=== PATIENT | male | born 1995 | race American Indian/Alaskan Native ===

== ENCOUNTER 2019-11-21 01:14 | Emergency (ER) | payer OTHER ==
[2019-11-21] MEDS ORDERED: Sodium Chloride 0.9% 1,000 ML IV ONE (01:27)
[2019-11-21] MEDS ORDERED: Clindamycin Phosphate 900 MG in Sodium Chloride 0.9% 100 ML IV ONE (01:27)
--- NOTE | 2019-11-21 01:32 | EDM.PDOC ---
ED HPI GENERAL MEDICAL PROBLEM - General Chief Complaint: Upper Extremity Injury/Pain Stated Complaint: ARM PAIN? Time Seen by Provider: 11/21/19 01:30 Source of Information: Reports: Patient History Limitations: Reports: No Limitations - History of Present Illness INITIAL COMMENTS - FREE TEXT/NARRATIVE: admits to injecting meth few days ago and left arm swollen and now worried. - Related Data Allergies Allergy/AdvReac Type Severity Reaction Status Date / Time sulfamethoxazole Allergy Cannot Verified 11/21/19 01:30 [From Bactrim] Remember trimethoprim [From Bactrim] Allergy Cannot Verified 11/21/19 01:30 Remember Home Meds: Home Meds . [No Known Home Meds] 12/25/13 [History] Past Medical History - Past Health History Medical/Surgical History: Denies Medical/Surgical History HEENT History: Reports: None Cardiovascular History: Reports: None Respiratory History: Reports: None Gastrointestinal History: Reports: None Genitourinary History: Reports: None Musculoskeletal History: Reports: None Neurological History: Reports: None Psychiatric History: Reports: None Endocrine/Metabolic History: Reports: None Hematologic History: Reports: None Immunologic History: Reports: None Oncologic (Cancer) History: Reports: None Dermatologic History: Reports: None - Infectious Disease History Infectious Disease History: Reports: Chicken Pox - Past Surgical History Head Surgeries/Procedures: Reports: None Review of Systems - Review of Systems Review Of Systems: Comprehensive ROS is negative, except as noted in HPI. ED EXAM, GENERAL - Physical Exam Exam: See Below Exam Limited By: No Limitations General Appearance: Alert, WD/WN, Anxious, Mild Distress Eye Exam: Bilateral Eye: PERRL (pupils ER @ 4mm) Ears: Hearing Grossly Normal Throat/Mouth: Normal Voice, No Airway Compromise Head: Atraumatic Neck: Non-Tender, Full Range of Motion Respiratory/Chest: No Respiratory Distress Cardiovascular: Regular Rate, Rhythm GI/Abdominal: Soft, Non-Tender Extremities: Other (left arm injection site swollen tneder R/P, NV wnl, erythema ) Neurological: Alert, Oriented, Normal Cognition, Normal Gait, No Motor/Sensory Deficits Psychiatric: Anxious, Tearful Skin Exam: Warm, Dry, Normal Color Lymphatic: No Adenopathy Course - Vital Signs Last Recorded V/S: Last Vital Signs Temp 36.3 C 11/21/19 01:23 Pulse 86 11/21/19 01:23 Resp 19 11/21/19 01:23 BP 125/80 11/21/19 01:23 Pulse Ox 100 11/21/19 01:23 - Orders/Labs/Meds Orders: Active Orders 24 hr Category Date Time Status CULTURE BLOOD [BC] Stat Lab 11/21/19 01:36 Received Labs: Laboratory Tests 11/21/19 11/21/19 11/21/19 Range/Units 01:36 01:36 01:36 WBC 8.0 (5.0-10.0) 10^3/uL RBC 4.29 L (4.6-6.2) 10^6/uL Hgb 13.6 L (14.0-18.0) g/dL Hct 38.1 L (40.0-54.0) % MCV 88.8 (80-100) fL MCH 31.7 (27.0-34.0) pg MCHC 35.7 H (33.0-35.0) g/dL Plt Count 319 (150-450) 10^3/uL Neut % (Auto) 71.2 (42.2-75.2) % Lymph % (Auto) 22.0 (20.5-50.1) % [place] % (Auto) 5.9 (2-8) % Eos % (Auto) 0.8 L (1.0-3.0) % Baso % (Auto) 0.1 (0.0-1.0) % Sodium 139 (136-145) mmol/L Potassium 3.5 (3.5-5.1) mmol/L Chloride 101 (98-107) mmol/L Carbon Dioxide 30 (21-32) mmol/L Anion Gap 11.5 (7-13) mEq/L BUN 7 (7-18) mg/dL Creatinine 0.97 (0.70-1.30) mg/dL Est Cr Clr Drug Dosing 110.73 mL/min Estimated GFR (MDRD) > 60 BUN/Creatinine Ratio 7.2 (No establ ref range) Glucose 103 H (74-99) mg/dL Lactic Acid 0.8 (0.4-2.0) mmol/L Calcium 8.8 (8.5-10.1) mg/dL Total Bilirubin 0.4 (0.2-1.0) mg/dL AST 15 (15-37) U/L ALT 22 (16-63) U/L Alkaline Phosphatase 80 (46-116) U/L Total Protein 7.4 (6.4-8.2) g/dL Albumin 4.0 (3.4-5.0) g/dL Globulin 3.4 Albumin/Globulin Ratio 1.2 Meds: Medications Discontinued Medications Generic Name Dose Route Start Last Admin Trade Name Lizzy PRN Reason Stop Dose Admin Clindamycin Phosphate 900 mg/ 106 mls @ 200 mls/hr 11/21/19 01:27 11/21/19 01 :45 Sodium Chloride IV 11/21/19 01:58 200 mls/hr ONETIME ONE Administration Sodium Chloride 1,000 mls @ 999 mls/hr 11/21/19 01:27 11/21/19 01:44 Normal Saline IV 11/21/19 02:27 999 mls/hr .BOLUS ONE Administration - Re-Assessments/Exams Free Text/Narrative Re-Assessment/Exam: 11/21/19 02:56 results discussed with pt Departure - Departure Time of Disposition: 02:56 Disposition: Home, Self-Care 01 Condition: Good Clinical Impression: Cellulitis Qualifiers: Site of cellulitis: extremity Site of cellulitis of extremity: upper extremity Laterality: left Qualified Code(s): L03.114 - Cellulitis of left upper limb - Discharge Information Forms: ED Department Discharge Additional Instructions: 1) don't inject anything into arm 2) follow up at clinic rx given; clindamycin 300mg qid x 40 Sepsis Event Note - Focused Exam Vital Signs: Vital Signs Temp Pulse Resp BP Pulse Ox 11/21/19 01:23 36.3 C 86 19 125/80 100 Date Exam was Performed: 11/21/19 Time Exam was Performed: 02:56 - My Orders Last 24 Hours: My Active Orders 11/21/19 01:36 CULTURE BLOOD [BC] Stat - Assessment/Plan Last 24 Hours: My Active Orders 11/21/19 01:36 CULTURE BLOOD [BC] Stat
[2019-11-21 02:10] LABS: ANION GAP 11.5 mEq/L (7-13); CHLORIDE,CL 101 mmol/L (98-107); SODIUM,NA 139 mmol/L (136-145)
[2019-11-21 03:03] VITALS: BP 125/76; PULSE 80
== END 2019-11-21 03:01 | disposition home or self-care (01) ==
LOC: DL.ED 01:14
DX: L03.114 Cellulitis of left upper limb (principal); Z88.2 Allergy status to sulfonamides
CPT/HCPCS: 36415; 80053; 83605; 85025; 87040; 96365; 99283; J3490; J7030; J7050

== ENCOUNTER 2021-03-19 02:14 | Emergency (ER) | payer OTHER ==
[2021-03-19] MEDS ORDERED: cefTRIAXone 1 GM Vial IM ONE (02:30)
[2021-03-19] MEDS ORDERED: Azithromycin 250 MG Tab PO ONE (02:30)
[2021-03-19 02:53] LABS: AMPHETAMINES,URINE POSITIVE (NEGATIVE); BARBITURATES,URINE NEGATIVE (NEGATIVE); BENZODIAZEPINE,URINE NEGATIVE (NEGATIVE); MDMA (ECSTASY), URINE POSITIVE (NEGATIVE); METHADONE,URINE NEGATIVE (NEGATIVE); METHAMPHETAMINES,URINE POSITIVE (NEGATIVE); OPIATES,URINE NEGATIVE (NEGATIVE); OXYCODONE,URINE POSITIVE (NEGATIVE); PHENCYCLIDINE,URINE NEGATIVE (NEGATIVE); TCA,URINE NEGATIVE (NEGATIVE)
[2021-03-19 03:04] LABS: ANION GAP 12.7 mEq/L (7-13); CHLORIDE,CL 97 mmol/L (98-107); SODIUM,NA 136 mmol/L (136-145)
[2021-03-19 03:49] VITALS: BP 111/74; PULSE 93
--- NOTE | 2021-03-19 03:51 | EDM.PDOC ---
ED HPI GENERAL MEDICAL PROBLEM - General Chief Complaint: Abdominal Pain Stated Complaint: PAIN IN LOWER RIGHT STOMACH Time Seen by Provider: 03/19/21 02:45 Source of Information: Reports: Patient, RN History Limitations: Reports: No Limitations - History of Present Illness INITIAL COMMENTS - FREE TEXT/NARRATIVE: ED with c/o pain lower abdomen some discharge at times from penis, pain right testicle x 2 days some burning with urination. Groin Pain Score (Numeric/FACES): 8 - Related Data Allergies Allergy/AdvReac Type Severity Reaction Status Date / Time sulfamethoxazole Allergy Cannot Verified 03/19/21 02:33 [From Bactrim] Remember trimethoprim [From Bactrim] Allergy Cannot Verified 03/19/21 02:33 Remember Home Meds: Home Meds Doxycycline [Vibra-Tabs] 100 mg PO Q12HR 7 Days #14 tab 02/08/21 [Rx] Past Medical History - Past Health History Medical/Surgical History: Denies Medical/Surgical History HEENT History: Reports: None Cardiovascular History: Reports: None Respiratory History: Reports: None Gastrointestinal History: Reports: None Genitourinary History: Reports: None Musculoskeletal History: Reports: None Neurological History: Reports: None Psychiatric History: Reports: None Endocrine/Metabolic History: Reports: None Hematologic History: Reports: None Immunologic History: Reports: None Oncologic (Cancer) History: Reports: None Dermatologic History: Reports: Other (See Below) Other Dermatologic History: 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 - Infectious Disease History Infectious Disease History: Reports: Chicken Pox, MRSA - Past Surgical History Head Surgeries/Procedures: Reports: None Social & Family History - Family History Family Medical History: No Pertinent Family History - Tobacco Use Tobacco Use Status *Q: Current Some Day Tobacco User Years of Tobacco use: 7 Packs/Tins Daily: 0.5 - Caffeine Use Caffeine Use: Reports: Coffee, Energy Drinks, Soda, Tea, Other - Recreational Drug Use Recreational Drug Use: Yes Recreational Drug Type: Reports: Marijuana/Hashish, Methamphetamine ED ROS GENERAL - Review of Systems Review Of Systems: See Below Constitutional: Reports: Chills, Weight Gain Respiratory: Reports: No Symptoms : Reports: Discharge, Dysuria Musculoskeletal: Reports: No Symptoms Skin: Reports: No Symptoms ED EXAM, RENAL/ - Physical Exam Exam: See Below Exam Limited By: No Limitations General Appearance: Alert, Mild Distress Eye Exam: Bilateral Eye: EOMI Ears: Hearing Grossly Normal Throat/Mouth: Normal Voice Head: Atraumatic, Normocephalic Neck: Normal Inspection Respiratory/Chest: No Respiratory Distress Cardiovascular: Regular Rate, Rhythm GI/Abdominal: Soft, Tender (supra pubic) (Male) Exam: Cremasteric Reflex, Inguinal Lymphadenopathy (right), Scrotal Swelling (right firm tender), Testicular Tenderness (R), Urethral Discharge. No: Penile Lesions Extremities: Normal Inspection Neurological: Alert, Oriented, Normal Cognition Psychiatric: Normal Affect Skin Exam: Warm, Dry, Intact, Normal Color, Tattoo(s) Course - Vital Signs Last Recorded V/S: Last Vital Signs Temp 98.9 F 03/19/21 02:32 Pulse 93 03/19/21 03:49 Resp 18 03/19/21 03:49 BP 111/74 03/19/21 03:49 Pulse Ox 99 03/19/21 03:49 - Orders/Labs/Meds Labs: Laboratory Tests 03/19/21 03/19/21 03/19/21 Range/Units 02:33 02:33 02:40 WBC 16.0 H (5.0-10.0) 10^3/uL RBC 4.63 (4.6-6.2) 10^6/uL Hgb 14.7 D (14.0-18.0) g/dL Hct 42.3 (40.0-54.0) % MCV 91.4 (80-100) fL MCH 31.7 (27.0-34.0) pg MCHC 34.8 (33.0-35.0) g/dL Plt Count 404 D (150-450) 10^3/uL Neut % (Auto) 86.0 H (42.2-75.2) % Lymph % (Auto) 7.6 L (20.5-50.1) % [place] % (Auto) 6.2 (2-8) % Eos % (Auto) 0.1 L (1.0-3.0) % Baso % (Auto) 0.1 (0.0-1.0) % Sodium (136-145) mmol/L Potassium (3.5-5.1) mmol/L Chloride (98-107) mmol/L Carbon Dioxide (21-32) mmol/L Anion Gap (7-13) mEq/L BUN (7-18) mg/dL Creatinine (0.70-1.30) mg/dL Est Cr Clr Drug Dosing mL/min Estimated GFR (MDRD) BUN/Creatinine Ratio (No establ ref range) Glucose (70-99) mg/dL Lactic Acid (0.4-2.0) mmol/L Calcium (8.5-10.1) mg/dL Total Bilirubin (0.2-1.0) mg/dL AST (15-37) U/L ALT (16-63) U/L Alkaline Phosphatase (46-116) U/L Total Protein (6.4-8.2) g/dL Albumin (3.4-5.0) g/dL Globulin Albumin/Globulin Ratio Urine Color Yellow (YELLOW) Urine Appearance Turbid (CLEAR) Urine pH 7.0 (5.0-9.0) Ur Specific [place] 1.020 (1.005-1.030) Urine Protein Trace H (NEGATIVE) Urine Glucose (UA) Negative (NEGATIVE) Urine Ketones Trace H (NEGATIVE) Urine Occult Blood Negative (NEGATIVE) Urine Nitrite Negative (NEGATIVE) Urine Bilirubin Negative (NEGATIVE) Urine Urobilinogen 1.0 (0.2-1.0) mg/dL Ur Leukocyte Esterase Large H (NEGATIVE) Urine RBC 0-5 (0-5) /HPF Urine WBC >100 H (0-5/HPF) /HPF Ur Epithelial Cells Rare (NOT SEEN) /HPF Amorphous Sediment Few (NOT SEEN) /HPF Urine Bacteria Few (0-FEW/HPF) /HPF Urine Mucus Few H (NOT SEEN) /LPF Urine Opiates Screen Negative (NEGATIVE) Ur Oxycodone Screen Positive H (NEGATIVE) Urine Methadone Screen Negative (NEGATIVE) Ur Barbiturates Screen Negative (NEGATIVE) U Tricyclic Antidepress Negative (NEGATIVE) Ur Phencyclidine Scrn Negative (NEGATIVE) Ur Amphetamine Screen Positive H (NEGATIVE) U Methamphetamines Scrn Positive H (NEGATIVE) Urine MDMA Screen Positive H (NEGATIVE) U Benzodiazepines Scrn Negative (NEGATIVE) Urine Cocaine Screen Negative (NEGATIVE) U Marijuana (THC) Screen Positive H (NEGATIVE) 03/19/21 03/19/21 Range/Units 02:40 02:40 WBC (5.0-10.0) 10^3/uL RBC (4.6-6.2) 10^6/uL Hgb (14.0-18.0) g/dL Hct (40.0-54.0) % MCV (80-100) fL MCH (27.0-34.0) pg MCHC (33.0-35.0) g/dL Plt Count (150-450) 10^3/uL Neut % (Auto) (42.2-75.2) % Lymph % (Auto) (20.5-50.1) % [place] % (Auto) (2-8) % Eos % (Auto) (1.0-3.0) % Baso % (Auto) (0.0-1.0) % Sodium 136 (136-145) mmol/L Potassium 3.7 (3.5-5.1) mmol/L Chloride 97 L D (98-107) mmol/L Carbon Dioxide 30 (21-32) mmol/L Anion Gap 12.7 (7-13) mEq/L BUN 7 (7-18) mg/dL Creatinine 0.87 (0.70-1.30) mg/dL Est Cr Clr Drug Dosing 120.96 mL/min Estimated GFR (MDRD) > 60 BUN/Creatinine Ratio 8.0 (No establ ref range) Glucose 109 H (70-99) mg/dL Lactic Acid 1.8 (0.4-2.0) mmol/L Calcium 9.2 D (8.5-10.1) mg/dL Total Bilirubin 0.4 (0.2-1.0) mg/dL AST 14 L (15-37) U/L ALT 20 (16-63) U/L Alkaline Phosphatase 104 (46-116) U/L Total Protein 8.3 H (6.4-8.2) g/dL Albumin 3.5 (3.4-5.0) g/dL Globulin 4.8 Albumin/Globulin Ratio 0.7 Urine Color (YELLOW) Urine Appearance (CLEAR) Urine pH (5.0-9.0) Ur Specific [place] (1.005-1.030) Urine Protein (NEGATIVE) Urine Glucose (UA) (NEGATIVE) Urine Ketones (NEGATIVE) Urine Occult Blood (NEGATIVE) Urine Nitrite (NEGATIVE) Urine Bilirubin (NEGATIVE) Urine Urobilinogen (0.2-1.0) mg/dL Ur Leukocyte Esterase (NEGATIVE) Urine RBC (0-5) /HPF Urine WBC (0-5/HPF) /HPF Ur Epithelial Cells (NOT SEEN) /HPF Amorphous Sediment (NOT SEEN) /HPF Urine Bacteria (0-FEW/HPF) /HPF Urine Mucus (NOT SEEN) /LPF Urine Opiates Screen (NEGATIVE) Ur Oxycodone Screen (NEGATIVE) Urine Methadone Screen (NEGATIVE) Ur Barbiturates Screen (NEGATIVE) U Tricyclic Antidepress (NEGATIVE) Ur Phencyclidine Scrn (NEGATIVE) Ur Amphetamine Screen (NEGATIVE) U Methamphetamines Scrn (NEGATIVE) Urine MDMA Screen (NEGATIVE) U Benzodiazepines Scrn (NEGATIVE) Urine Cocaine Screen (NEGATIVE) U Marijuana (THC) Screen (NEGATIVE) Meds: Medications Discontinued Medications Generic Name Dose Route Start Last Admin Trade Name Freq PRN Reason Stop Dose Admin Azithromycin 1,000 mg 03/19/21 02:30 03/19/21 02:46 Azithromycin 250 Mg Tab PO 03/19/21 02:31 1,000 mg ONETIME ONE Administration Ceftriaxone Sodium 1 gm 03/19/21 02:30 03/19/21 02:46 Ceftriaxone 1 Gm Vial IM 03/19/21 02:31 1 gm ONETIME ONE Administration - Re-Assessments/Exams Free Text/Narrative Re-Assessment/Exam: High risk behavior will treat for STD GC chlamydia. Results pending. Departure - Departure Time of Disposition: 03:50 Disposition: Home, Self-Care 01 Condition: Good Clinical Impression: Epididymitis, Positive urine drug screen UTI (urinary tract infection) Qualifiers: Urinary tract infection type: site unspecified Hematuria presence: without hematuria Qualified Code(s): N39.0 - Urinary tract infection, site not specified - Discharge Information *PRESCRIPTION DRUG MONITORING PROGRAM REVIEWED*: No *COPY OF PRESCRIPTION DRUG MONITORING REPORT IN PATIENT MUSHTAQ: No Instructions: Urinary Tract Infection, Adult, [id number] Referrals: PCP,None [Primary Care Provider] - Forms: ED Department Discharge Additional Instructions: cipro 500mg twice daily cold pack to scrotum tylenol 500mg every 4 hours as needed for discomfort refrain from using meth clinic follow up if fever, worsening symptoms Sepsis Event Note (ED) - Evaluation Sepsis Screening Result: No Definite Risk
[2021-03-20 13:46] LABS: C.TRACHOMATIS BY TMA Positive (Negative); N.GONORRHOEAE BY TMA Positive (Negative)
== END 2021-03-19 03:50 | disposition home or self-care (01) ==
LOC: EEVIPCON 02:14 → DL.ED 02:14
DX: N39.0 Urinary tract infection, site not specified (principal); N45.1 Epididymitis; R82.5 Elevated urine levels of drugs, medicaments and biological substances; Z72.0 Tobacco use; Z88.2 Allergy status to sulfonamides
CPT/HCPCS: 36415; 80053; 80305; 81001; 83605; 85025; 87040; 87086; 87491; 87591; 96372; 99284; A9270; J0696